=== PATIENT | male | born 1955 | race African-American/Black ===

== ENCOUNTER 2017-08-02 11:45 | Emergency (ER) | payer OTHER ==
[~2017-08-02] VITALS: Ht 165.1 cm; Wt 70.7 kg
[~2017-08-02 11:45] MED LIST: AMLODIPINE BESY10 MG PO; DIABETA,MICRON2.5 MG PO; GLIMEPIRIDE2 MG PO; LISINOPRIL10 MG PO; LO-DOSE ASPIRIN81 M2 PO; LOPRESSOR25 MG PO; LOVASTATIN20 MG PO; MEN'S MULTI-VI1 EACH PO; METFORMIN HCL500 MG PO; MEVACOR40 MG PO; MOTRIN600 MG PO; PEN-VEE K,VEET500 MG PO; PLAVIX75 MG PO; PRINZIDE 10-121 EACH PO; THIAMINE HCL100 MG PO; [UNRECOGNIZED DRUG - OTHER] PO
[2017-08-02] MEDS ORDERED: MOTRIN800 MG PO (13:16)
[2017-08-02] MEDS ORDERED: CLEOCIN300 MG PO (13:16)
[2017-08-02 13:32] VITALS: BP 145/106
== END 2017-08-02 13:33 | disposition home or self-care (01) ==
LOC: EME 11:45
DX: K08.89 Other specified disorders of teeth and supporting structures (principal); F17.200 Nicotine dependence, unspecified, uncomplicated; I10 Essential (primary) hypertension; E11.9 Type 2 diabetes mellitus without complications; Z79.84 Long term (current) use of oral hypoglycemic drugs; Z86.73 Personal history of transient ischemic attack (TIA), and cerebral infarction without residual deficits
CPT/HCPCS: 99281; 99284